=== PATIENT | male | born 1950 | race Hispanic/Latino ===

== ENCOUNTER 2018-09-03 11:25 | Inpatient (IN) | payer MEDICARE, OTHER ==
[~2018-09-03] VITALS: Ht 175.3 cm; Wt 99.8 kg
[~2018-09-03 11:25] MED LIST: LISINOPRIL-HCT1 EAC3 PO; Z.0.AMBIEN10 MG PO; Z.0.CELEBREX200 MG PO; Z.0.GABAPENTIN300 MG PO; Z.0.HEMOCYTE PLUS1 E PO; Z.0.KEFLEX500 MG PO; [UNRECOGNIZED DRUG - OTHER] PO
--- OUTSIDE RECORDS SUMMARY | 2018-09-03 11:31 | XMS REPORT ---
Author Author Quoc Sebastian Organization e[employer] Address Unknown Phone Unavailable Care Team Providers Care System Operation Superintendent Name Role Phone Quoc Sebastian CP Unavailable Allergies No Known Allergies Problems Problem Type Condition Code Onset Dates Condition Status Problem Left shoulder pain M25.512 Active Problem Rotator cuff tear M75.100 Active Problem Osteopenia of lumbar spine M85.88 Active Problem Right leg pain M79.604 Active Problem Acute pain of left knee M25.562 Active Problem Long-term use of high-risk medication Z79.899 Active Problem Rheumatoid arthritis M06.9 Active Problem Acute pain of right shoulder M25.511 Active Problem 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
--- OUTSIDE RECORDS SUMMARY | 2018-09-03 11:31 | XMS REPORT ---
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
--- OUTSIDE RECORDS SUMMARY | 2018-09-03 11:31 | XMS REPORT ---
Author Author Lanette Goodwin [facility] eClinicalWorks Address Unknown Phone Unavailable Care Team Providers Care Edi Programmer Name Role Phone Lanette Goodwin Unavailable Allergies, Adverse Reactions, Alerts Substance Reaction Event Type N.K.D.A. 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 Problem Long-term use of high-risk medication Z79.899 Active Medications Medication Code System Code Instructions Start Date End Date Status Dosage Folic Acid ND 12056115941 1 MG Orally Once a day Active 2 tablets Gabapentin ND 50152592973 300 MG Orally once a day Active 1 capsule Cyclobenzaprine HCl ND 53876782588 10 MG Orally once a day fro spasms August 06, 2017 Active 1 tablet as needed Humira ND 94803453547 40 MG/0.8ML Subcutaneous every 2 wks CANCEL prescription/pt enrolled in research Active 0.8 ml Methotrexate ND 42634535641 2.5 MG Orally once a week Active 4 tablets Lisinopril ND 48129182332 2.5 MG Orally Once a day Active 1 tablet PredniSONE ND 35552648638 5 MG Orally twice a day Active 1 tablet Vital Signs Date/Time: October 16, 2017 BMI 33.58 Index Weight 214.4 lbs Height 67 in Temperature 97.9 F Cardiac Monitoring Heart Rate 74 /min Blood Pressure Diastolic 68 mm Hg Blood Pressure Systolic 128 mm Hg Results No Known Results Summary Purpose eClinicalWorks Submission
--- OUTSIDE RECORDS SUMMARY | 2018-09-03 11:31 | XMS REPORT ---
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 14713468383 2.5 MG Orally once a week November 26, 2017 Active 4 tablets Results No Known Results Summary Purpose eClinicalWorks Submission
--- OUTSIDE RECORDS SUMMARY | 2018-09-03 11:31 | XMS REPORT ---
Author Author Quoc Sebastian [facility] eClinicalWorks Address Unknown Phone Unavailable Care Team Providers Care Glass Block Bender Name Role Phone Quoc Sebastian CP Unavailable Allergies No Known Allergies Problems Problem Type Condition Code Onset Dates Condition Status Assessment Left shoulder pain M25.512 Active Problem Left shoulder pain M25.512 Active Problem Rotator cuff tear M75.100 Active Problem Osteopenia of lumbar spine M85.88 Active Problem Right leg pain M79.604 Active Problem Acute pain of left knee M25.562 Active Problem Long-term use of high-risk medication Z79.899 Active Problem Rheumatoid arthritis M06.9 Active Problem Acute pain of right shoulder M25.511 Active Problem 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 Assessment Osteopenia of lumbar spine M85.88 Active Assessment Acute pain of left knee M25.562 Active Assessment 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 Assessment Long-term use of high-risk medication Z79.899 Active Assessment Right leg pain M79.604 Active Assessment Rheumatoid arthritis M06.9 Active Assessment Acute pain of right shoulder M25.511 Active Assessment Rotator cuff tear M75.100 Active Medications No Known Medications Results No Known Results Summary Purpose eClinicalWorks Submission
--- OUTSIDE RECORDS SUMMARY | 2018-09-03 11:31 | XMS REPORT ---
Author Author Quoc Sebastian [facility] eClinicalWorks Address Unknown Phone Unavailable Care Team Providers Care Fabric Finisher Name Role Phone Quoc Sebastian CP Unavailable Allergies, Adverse Reactions, Alerts Substance Reaction Event Type N.K.D.A. 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 Problem Right leg pain M79.604 Active Problem Left shoulder pain M25.512 Active Problem Rotator cuff tear M75.100 Active Problem Long-term use of high-risk medication Z79.899 Active Problem Rheumatoid arthritis M06.9 Active Medications Medication Code System Code Instructions Start Date End Date Status Dosage Humira [facility] 71869634648 40 MG/0.8ML Subcutaneous every 2 wks CANCEL prescription/pt enrolled in research Active 0.8 ml Folic Acid ND 75386673559 1 MG Orally Once a day Active 2 tablets Cyclobenzaprine HCl ND 61837827367 10 MG Orally once a day fro spasms August 06, 2017 November 04, 2017 Active 1 tablet as needed Lisinopril ND 52317003299 2.5 MG Orally Once a day Active 1 tablet PredniSONE ND 42245372603 5 MG Orally PRN Active 1 tablet Methotrexate [facility] [address]-81 2.5 MG once a week Active 4 tablets Metformin HCl ND 06493060951 500 MG Orally once a day Active 1 tablet with meals Gabapentin ND 53062068658 300 MG Orally once a day Active 1 capsule Vital Signs Date/Time: August 06, 2017 BMI 34.45 Index Weight 220 lbs Height 67 in Temperature 98.2 F Cardiac Monitoring Heart Rate 78 /min Blood Pressure Diastolic 64 mm Hg Blood Pressure Systolic 112 mm Hg Results No Known Results Summary Purpose eClinicalWorks Submission
--- OUTSIDE RECORDS SUMMARY | 2018-09-03 11:31 | XMS REPORT ---
Author Author Quoc Sebastian [facility] eClinicalWorks Address Unknown Phone Unavailable Care Team Providers Care Vamp Strap Ironer Name Role Phone Quoc Sebastian Unavailable Allergies, Adverse Reactions, Alerts Substance Reaction Event Type N.K.D.A. 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 Problem Long-term use of high-risk medication Z79.899 Active Problem Right leg pain M79.604 Active Problem Acute pain of right shoulder M25.511 Active Assessment Pain in left knee M25.562 Active Assessment 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 Assessment Rheumatoid arthritis M06.9 Active Medications Medication Code System Code Instructions Start Date End Date Status Dosage Gabapentin ND 90965874742 300 MG Orally once a day Active 1 capsule Lisinopril ND 54926046131 2.5 MG Orally Once a day Active 1 tablet Cyclobenzaprine HCl ND 79990878866 10 MG Orally once a day fro spasms August 06, 2017 Active 1 tablet as needed Humira ND 77965868037 40 MG/0.8ML Subcutaneous every 2 wks CANCEL prescription/pt enrolled in research Active 0.8 ml Folic Acid ND 60601365615 1 MG Orally Once a day Active 2 tablets PredniSONE ND 39696360192 5 MG Orally twice a day December 07, 2018 Active 1 tablet Methotrexate ND 43591955633 2.5 MG Orally once a week Active 4 tablets Vital Signs Date/Time: Jun 10, 2018 BMI 35 Index Weight 223.6 lbs Height 67 in Temperature 97.9 F Cardiac Monitoring Heart Rate 76 /min Blood Pressure Diastolic 68 mm Hg Blood Pressure Systolic 110 mm Hg Results No Known Results Summary Purpose eClinicalWorks Submission
--- OUTSIDE RECORDS SUMMARY | 2018-09-03 11:31 | XMS REPORT ---
Author Author Quoc Sebastian Organization [employer] Address Unknown Phone Unavailable Care Team Providers Care Boiler House Supervisor Name Role Phone Quoc Sebastian CP Unavailable [...]
--- OUTSIDE RECORDS SUMMARY | 2018-09-03 11:31 | XMS REPORT ---
Author Author Quoc Sebastian [facility] eClinicalWorks Address Unknown Phone Unavailable Care Team Providers Care Pecan Huller Name Role Phone Quoc Sebastian CP Unavailable Allergies, Adverse Reactions, Alerts Substance Reaction Event Type N.K.D.A. Info Not Available Non Drug Allergy Problems Problem Type Condition Code Onset Dates Condition Status Assessment Acute pain of left knee M25.562 Active Problem Rotator cuff tear M75.100 Active Assessment Rheumatoid arthritis M06.9 Active Assessment Long-term use of high-risk medication Z79.899 Active Assessment Primary osteoarthritis involving multiple joints [...] Instructions Start Date End Date Status Dosage PredniSONE [facility] 82547293049 5 MG Orally twice a day Active 1 tablet Medrol Dose Sabino ND 48117453715 4mg Orally as directed October 23, 2017 November 04, 2017 Active as directed Gabapentin [facility] 35560610943 300 MG Orally once a day Active 1 capsule Methotrexate ND 28136537347 2.5 MG Orally once a week Active 4 tablets Folic Acid ND 49768658131 1 MG Orally Once a day Active 2 tablets Humira [facility] 68168802269 40 MG/0.8ML Subcutaneous every 2 wks CANCEL prescription/pt enrolled in research Active 0.8 ml Cyclobenzaprine HCl ND 61729095310 10 MG Orally once a day fro spasms August 06, 2017 Active 1 tablet as needed Lisinopril ND 66000954782 2.5 MG Orally Once a day Active 1 tablet Vital Signs Date/Time: October 23, 2017 BMI 33.40 Index Weight 213.3 lbs Height 67 in Temperature 97.5 F Cardiac Monitoring Heart Rate 74 /min Blood Pressure Diastolic 68 mm Hg Blood Pressure Systolic 100 mm Hg Results No Known Results Summary Purpose eClinicalWorks Submission
--- OUTSIDE RECORDS SUMMARY | 2018-09-03 11:31 | XMS REPORT ---
Author Author Quoc Sebastian Organization [employer] Address Unknown Phone Unavailable Care Team Providers Care Chemistry Research Assistant Name Role Phone Quoc Sebastian CP Unavailable Allergies, Adverse Reactions, Alerts Substance Reaction Event Type N.K.D.A. 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 Problem Right leg pain M79.604 Active Problem Left shoulder pain M25.512 Active Problem Rotator cuff tear M75.100 Active Problem Long-term use of high-risk medication Z79.899 Active Problem Rheumatoid arthritis M06.9 Active Medications Medication Code System Code Instructions Start Date End Date Status Dosage Humira [facility] 32983180892 40 MG/0.8ML Subcutaneous every 2 wks CANCEL prescription/pt enrolled in research Active 0.8 ml PredniSONE ND 64493776959 5 MG Orally PRN Active 1 tablet Gabapentin ND 06063364236 300 MG Orally once a day Active 1 capsule Metformin HCl ND 60556901964 500 MG Orally Twice a day Active 1 tablet with meals Folic Acid ND 13809608342 1 MG Orally Once a day Active 2 tablets Lisinopril ND 66798258620 2.5 MG Orally Once a day Active 1 tablet Methotrexate [facility] [address]-14 2.5 once a week Active 4 tablets Cyclobenzaprine HCl [facility] 15896713187 10 MG Orally bid Apr 09, 2017 Jul 08, 2017 Active 1 tablet as needed Vital Signs Date/Time: Apr 09, 2017 BMI 34.41 Index Weight 219.7 lbs Height 67 in Temperature 98.4 F Cardiac Monitoring Heart Rate 88 /min Blood Pressure Diastolic 60 mm Hg Blood Pressure Systolic 100 mm Hg Results No Known Results Summary Purpose eClinicalWorks Submission
--- OUTSIDE RECORDS SUMMARY | 2018-09-03 11:31 | XMS REPORT ---
Author Author Quoc Sebastian Organization [employer] Address Unknown Phone Unavailable Care Team Providers Care Technical Business Systems Analyst Name Role Phone Quoc Sebastian CP Unavailable [...] Acute pain of right shoulder M25.511 Active Medications No Known Medications Results No Known Results Summary Purpose eClinicalWorks Submission
--- OUTSIDE RECORDS SUMMARY | 2018-09-03 11:31 | XMS REPORT ---
Author Author Quoc Sebastian Organization [employer] Address Unknown Phone Unavailable Care Team Providers Care Drying Unit Felting Machine Operator Name Role Phone Quoc Sebastian CP [...]
--- OUTSIDE RECORDS SUMMARY | 2018-09-03 11:31 | XMS REPORT ---
Author Quoc Rankin [facility] eClinicalWorks Address Unknown Phone Unavailable Care Team Providers Care Security Incident Response Engineer Name Role Phone Quoc Sebastian CP Unavailable Allergies, Adverse Reactions, Alerts Substance Reaction Event Type N.K.D.A. 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 Medications Medication Code System Code Instructions Start Date End Date Status Dosage PredniSONE ND 76458975753 5 MG Orally twice a day Active 1 tablet Methotrexate ND 29437329804 2.5 MG Orally once a week Active 4 tablets Humira ND 36747716777 40 MG/0.8ML Subcutaneous every 2 wks CANCEL prescription/pt enrolled in research Active 0.8 ml Lisinopril ND 51901567406 2.5 MG Orally Once a day Active 1 tablet Gabapentin ND 01584753775 300 MG Orally once a day Active 1 capsule Cyclobenzaprine HCl ND 58670674767 10 MG Orally once a day fro spasms August 06, 2017 Active 1 tablet as needed Folic Acid ND 20377467692 1 MG Orally Once a day Active 2 tablets Vital Signs Date/Time: November 30, 2017 BMI 34.70 Index Weight 215 lbs Height 66 in Temperature 97.5 F Cardiac Monitoring Heart Rate 68 /min Blood Pressure Diastolic 68 mm Hg Blood Pressure Systolic 110 mm Hg Results No Known Results Summary Purpose eClinicalWorks Submission
--- OUTSIDE RECORDS SUMMARY | 2018-09-03 11:31 | XMS REPORT ---
Author Author Quoc Sebastian Organization eClinicalWorks Address Unknown Phone Unavailable Care Team Providers Care Laborer Wharf Name Role Phone Quoc Sebastian CP Unavailable [...] Start Date End Date Status Dosage Methotrexate [facility] 38230878907 2.5 MG Orally once a week Active 4 tablets Results No Known Results Summary Purpose eClinicalWorks Submission
--- OUTSIDE RECORDS SUMMARY | 2018-09-03 11:31 | XMS REPORT ---
Author Author Quoc Sebastian Organization eClinicalWorks Address Unknown Phone Unavailable Care Team Providers Care Adjunct Professor Of English Name Role Phone Quoc Sebastian CP Unavailable [...] osteoarthritis involving multiple joints M15.0 Active Medications No Known Medications Results No Known Results Summary Purpose eClinicalWorks Submission
--- NOTE | 2018-09-03 12:20 | Diagnostic Imaging Report ---
EXAM: CXR 2 VIEW - [facility]OPD DATE: 09/03/2018 12:00 AM INDICATION:Chest pain COMPARISON: None FINDINGS: Lines and tubes: None The heart is upper normal size. No focal pulmonary opacity, pleural effusion or pneumothorax. There is central pulmonary vascular prominence. Minimal scarring or atelectasis at the left lung base with trace left pleural effusion. Upper abdomen unremarkable. No acute bony abnormality. IMPRESSION: Borderline heart size with central pulmonary vascular prominence and trace left pleural effusion. Signed by: Dr. Faustino Connor M.D. on 09/03/2018 12:16 PM
[2018-09-03] MEDS ORDERED: ASPIR 8181 MG PO (13:34)
[2018-09-03] MEDS ORDERED: HUMIRA40 MG/0.1 INJ (13:41)
[2018-09-03] MEDS ORDERED: FOLIC ACID1 MG PO (13:41)
[2018-09-03] MEDS ORDERED: JANUMET XR 1001 EACH (13:41)
[2018-09-03] MEDS ORDERED: HUMIRA40 MG/0.1 (13:41)
[2018-09-03] MEDS ORDERED: FINASTERIDE5 MG PO (13:41)
[2018-09-03] MEDS ORDERED: PREDNISONE10 MG PO (13:44)
[2018-09-03] MEDS ORDERED: METFORMIN HCL500 MG PO (13:44)
[2018-09-03] MEDS ORDERED: LISINOPRIL10 MG PO (13:44)
[2018-09-03] MEDS ORDERED: METHOTREXATE2.5 MG PO (13:44)
[2018-09-03] MEDS ORDERED: FLOMAX0.4 MG PO (13:44)
--- NOTE | 2018-09-03 14:07 | NUR ---
[facility] CALLED FOR STAT TRANSFER <15 ETA
--- NOTE | 2018-09-03 14:07 | NUR ---
PT RESTING, VITAL SIGNS STABLE, PT AWARE OF POC TO BE TRANSFERED TO MAIN
[2018-09-03] MEDS ORDERED: ENOXAPARIN SODIUM INJ 100 MG/ML SYR SC STA (14:09)
[2018-09-03] MEDS ORDERED: ENOXAPARIN SODIUM INJ 100 MG/ML SYR SC SCH (14:15)
--- OUTSIDE RECORDS SUMMARY | 2018-09-03 14:29 | XMS REPORT | Continuity of Care Document ---
Author Author Elizabeth no [facility] Address Unknown Phone Unavailable Problems Problem Status Onset Date Classification Date Reported Comments Source Acute pain of right shoulder Active Problem 2018 Brody Sebastian Primary osteoarthritis involving multiple joints Active Problem 2018 Brody Sebastian Right leg pain Active Problem 2018 Brody Sebastian Left shoulder pain Active Problem 2018 Brody Sebastian Rotator cuff tear Active Problem 2018 Brody Sebastian Long-term use of high-risk medication Active Problem 2018 Brody Sebastian Rheumatoid arthritis Active Problem 2018 Brody Sebastian Acute pain of left knee Active Problem 2018 Brody Sebastian Left knee pain Active Diagnosis 10/30/2017 Brody Sebastian Osteopenia of lumbar spine Active Problem 2018 Brody Sebastian Pain in left knee Active Problem 2018 Brody Sebastian Medications Medication Details Route Status Patient Instructions Ordering Provider Order Date Source PredniSONE 1 tablet Orally Active 5 MG Orally twice a day [place] 12/07/2018 Brody Sebastian Methotrexate 4 tablets Orally Active 2.5mg Orally Once a week [place] 02/11/2018 Brody Sebastian Methotrexate 4 tablets Orally Active 2.5 MG Orally once a week [place] 11/26/2017 Brody Sebastian Medrol Dose Sabino as directed Orally Active 4mg Orally as directed [place] 10/23/2017 Brody Sebastian Cyclobenzaprine HCl 1 tablet as needed Orally Active 10 MG Orally once a day fro spasms [place] 08/06/2017 Brody Sebastian Cyclobenzaprine HCl 1 tablet as needed Orally Active 10 MG Orally bid [place] 04/09/2017 Brody Sebastian Methotrexate 4 tablets Orally Active 2.5 MG Orally once a week [place] Brody Sebastian PredniSONE 1 tablet Orally Active 5 MG Orally twice a day [place] Brody Sebastian Gabapentin 1 capsule Orally Active 300 MG Orally once a day [place] Brody Sebastian Folic Acid 2 tablets Orally Active 1 MG Orally Once a day [place] Brody Sebastian Humira 0.8 ml Subcutaneous Active 40 MG/0.8ML Subcutaneous every 2 wks CANCEL prescription/pt enrolled in research Jaz Sebastian Lisinopril 1 tablet Orally Active 2.5 MG Orally Once a day Jaz Sebastian Methotrexate 4 tablets NA Active 2.5 MG once a week Jaz Sebastian Metformin HCl 1 tablet with meals Orally Active 500 MG Orally once a day Jaz Sebastian Allergies, Adverse Reactions, Alerts Substance Category Reaction Severity Reaction type Status Date Reported Comments Source N.K.D.A. Adverse Reaction Info Not Available Adverse Reaction Active 06/10/2018 Brody Sebastian Immunizations Immunization Date Given Site Status Last Updated Comments Source Results Order Name Results Value Reference Range Date Interpretation Comments Source Vital Signs Vital Sign Value Date Comments Source Weight 223.6 06/10/2018 Brody Gómezer Height 67 06/10/2018 Brody Sebastian Temperature Oral (F) 97.9 F 06/10/2018 Brody Sebastian Heart Rate 76 06/10/2018 Brody Sebastian Diastolic (mm Hg) 68 06/10/2018 Brody Sebastian Systolic (mm Hg) 110 06/10/2018 Brody Sebastian Weight 215 11/30/2017 Brody Sebastian Height 66 11/30/2017 Brody Sebastian Temperature Oral (F) 97.5 F 11/30/2017 Brody Sebastian Heart Rate 68 11/30/2017 Brody Sebastian Diastolic (mm Hg) 68 11/30/2017 Brody Sebastian Systolic (mm Hg) 110 11/30/2017 Brody Sebastian Weight 213.3 10/23/2017 Brody Sebastian Height 67 10/23/2017 Brody Sebastian Temperature Oral (F) 97.5 F 10/23/2017 Brody Sebastian Heart Rate 74 10/23/2017 Brody Sebastian Diastolic (mm Hg) 68 10/23/2017 Brody Sebastian Systolic (mm Hg) 100 10/23/2017 Brody Sebastian Weight 214.4 10/16/2017 Brody Sebastian Height 67 10/16/2017 Brody Sebastian Temperature Oral (F) 97.9 F 10/16/2017 Brody Sebastian Heart Rate 74 10/16/2017 Brody Sebastian Diastolic (mm Hg) 68 10/16/2017 Brody Sebastian Systolic (mm Hg) 128 10/16/2017 Brody Sebastian Weight 220 08/06/2017 Brody Sebastian Height 67 08/06/2017 Brody Sebastian Temperature Oral (F) 98.2 F 08/06/2017 Brody Sebastian Heart Rate 78 08/06/2017 Brody Sebastian Diastolic (mm Hg) 64 08/06/2017 Brody Sebastian Systolic (mm Hg) 112 08/06/2017 Brody [place] Weight 219.7 04/09/2017 Brody Sebastian Height 67 04/09/2017 Brody Sebastian Temperature Oral (F) 98.4 F 04/09/2017 Brody Sebastian Heart Rate 88 04/09/2017 Brody Sebastian Diastolic (mm Hg) 60 04/09/2017 Brody Sebastian Systolic (mm Hg) 100 04/09/2017 Brody Sebastian Encounters Location Location Details Encounter Type Encounter Number Reason For Visit Attending Provider ADM Date DC Date Status Source Procedures Procedure Code Date Perfomer Comments Source
--- OUTSIDE RECORDS SUMMARY | 2018-09-03 14:29 | XMS REPORT ---
[facility] Address Unknown Phone Unavailable Care Team Providers Care Senior Validation Engineer Name Role Phone Festus MARTIN Unavailable Unavailable Problems This patient has no known problems. Allergies, Adverse Reactions, Alerts This patient has no known allergies or adverse reactions. Medications This patient has no known medications. Results Test Description Test Time Test Comments Text Results Atomic Results Result Comments [facility] 2018-09-03 12:13:00 [place] [id number] Patient Name: SAMANTA ANTONIO MR #: [id number] : 1950 Age/Sex: 68/M Req #: [id number] Adm Physician: Ordered by: RAMÓN MARTIN MD Report #: [id number] Location: [facility] Room/Bed: Procedure: [id number] HOPD/CXR 2 VIEW - [facility] Exam Date: 09/03/18 Exam Time: 1200 REPORT STATUS: Signed EXAM: CXR 2 VIEW - [facility] DATE: 09/03/2018 12:00 AM INDICATION:Chest pain COMPARISON: None FINDINGS: Lines and tubes: None The heart is upper normal size. No focal pulmonary opacity, pleural effusion or pneumothorax. There is central pulmonary vascular prominence. Minimal scarring or atelectasis at the left lung base with trace left pleural effusion. Upper abdomen unremarkable. No acute bony abnormalit y. IMPRESSION: Borderline heart size with central pulmonary vascular prominence and trace left pleural effusion. Signed by: Dr. Donald Silvestre M.D. on 09/03/2018 12:16 PM Dictated By: DONALD SILVESTRE MD [id number] Transcribed By: KAY on 09/03/186 COPY TO: RAMÓN MARTIN MD
[2018-09-03] MEDS ORDERED: TICAGRELOR 90 MG TABLET PO ONE (14:45)
--- NOTE | 2018-09-03 15:30 | NUR ---
Received patient from [facility], via stretcher with c/o chest pains that started on Sunday, states that pain was 5/10 earlier today and at 1.5/10 at this time. VSS and on continuous telemetry, ambulatory.Dr. Alberto the enologist aware about patient and orders patient can have dinner and will be NPO from midnight for possible LHC tomorrow. Patient in no apparent distress at this time, call light within reach and will monitor
[2018-09-03] MEDS ORDERED: TICAGRELOR 90 MG TABLET PO NR (16:15)
[2018-09-03 16:16] VITALS: BP 116/66
[2018-09-03 16:21] VITALS: BP 116/66
[2018-09-03 17:27] LABS: CREATINE KINASE MB 31.5 ng/mL (0-5.0)
[2018-09-03] MEDS ORDERED: DEXTROSE 50% SYRINGE 50 ML IV PRN (17:30)
[2018-09-03] MEDS ORDERED: NITROGLYCERIN 0.4 MG SUBL SL PRN (17:45)
[2018-09-03] MEDS ORDERED: MORPHINE SULFATE INJ 4 MG/ML INJ 1ML IV PRN (18:00)
--- NOTE | 2018-09-03 18:05 | NUR ---
Rounds by manager hi, reported elevated troponin and orders in place for Statins, antiplatelets and morphine. He will need to called if patient becomes symptomatic with chest pains, patient at this time in bed and no distress.
--- NOTE | 2018-09-03 18:28 | NUR ---
Patient consented to [facility] and signed consent at this time
--- NOTE | 2018-09-03 19:00 | NUR ---
Report and rounds completed. Family at bedside. No issues or concerns at this time. Denies pain at this time.Will continue to monitor.
--- NOTE | 2018-09-03 19:11 | NUR ---
Spoke with Dr. Caceres and orders in place for labs and to resume some home meds.
--- NOTE | 2018-09-03 19:56 | NUR ---
Spoke with Dr Sanchez via phone. patient has scheduled dose of lovenox at 0215 and heart cath scheduled for 0900. First trop 13.5, second trop 15.7 and third is due at 0030. Hold 2am lovenox dose. Clarified if want aspirin and brilinta to be given in morning before heart cath. Give aspirin and brilinta as ordered in am before heart cath.
[2018-09-03 20:00] VITALS: BP 120/68
[2018-09-03] MEDS: ATORVASTATIN 40 MG TAB PO SCH (21:42)
[2018-09-03] MEDS: GABAPENTIN 300 MG CAP PO SCH (21:42)
[2018-09-03] MEDS: INSULIN REGULAR, HUMAN 100 UNIT/1 ML 3ML VIAL SQ SCH (21:43)
[2018-09-04] VITALS (22 sets, daily range): BP systolic 92–127; BP diastolic 61–78
[2018-09-04 00:48] LABS: CREATINE KINASE MB 14.5 ng/mL (0-5.0)
--- NOTE | 2018-09-04 00:52 | NUR ---
Lab alert: troponin 12.75, lab trending down. MD aware that troponin levels elevated. Monitoring patient, denies any pain and asymptomatic. VS stable. To have have heart cath in am.
[2018-09-04] MEDS: ENOXAPARIN SODIUM INJ 100 MG/ML SYR SC SCH ×2 (01:34→14:15)
--- NOTE | 2018-09-04 01:39 | Consultation ---
DATE OF CONSULTATION: 09/03/2018 Cardiology Consult Note. REASON FOR CONSULT: Jlo-FP-iwxpiijnq myocardial infarction. CHIEF COMPLAINT: Chest pain. HISTORY OF PRESENT ILLNESS: The patient is a 68-year-old man with history of hypertension, hyperlipidemia, who presents with chest pain, diaphoresis, and shortness of breath that is an episodic starting on Sunday. He says he had about a 3 hour episode of chest pain, diaphoresis, and shortness of breath. He was working in his garage at the time, he laid down for a nap and then the symptoms resolved, so he did not seek any medical care. Symptoms returned yesterday when he was trying to do some light work around the house, however, at this time, they did not talia. Given continued symptoms, he decided to seek medical care today, was found to have elevated troponin in the Urgent Care at 15.7, as well as some inferior Q-waves. Denies any ongoing symptoms. No heart failure symptoms. Hemodynamically stable. No syncope. PAST MEDICAL HISTORY: Hypertension and hyperlipidemia. FAMILY HISTORY: Noncontributory. SOCIAL HISTORY: The patient does not smoke, drink, or abuse drugs. REVIEW OF SYSTEMS: As per HPI, otherwise negative. INPATIENT MEDICATIONS: Reviewed. OBJECTIVE: VITAL SIGNS: Temperature afebrile, pulse 67, respiratory rate 18, blood pressure 116/66, and saturating 99% on room air. GENERAL: Obese man, in no acute distress. CARDIOVASCULAR: Regular rate and rhythm. No murmurs, rubs, or gallops. LUNGS: Clear to auscultation bilaterally. ABDOMEN: Soft, nontender, nondistended. Obese. NEURO AND PSYCH: Alert and oriented to person, place, and time. Normal affect. LABORATORY DATA: Reviewed notable for troponin of 15.7. IMAGING DATA: Reviewed. Chest x-ray shows borderline cardiomegaly with prominent central pulmonary vasculature. TELEMETRY DATA: Reviewed and shows normal sinus rhythm. ASSESSMENT: Zmu-SU-bbdepzzzh myocardial infarction. PLAN: Continue full-dose Lovenox, aspirin, and Ticagrelor. Plan for coronary angiography, possible intervention tomorrow morning. The patient is currently asymptomatic. Thank you for this consult and we will continue to follow. Ramo Alberto MD KVP/MODL /[id number]
[2018-09-04 05:32] LABS: BASOPHILS # (AUTO) 0.1 (0.0-0.1); BASOPHILS % 0.8 % (0.0-1.0); EOSINOPHILS # (AUTO) 0.1 (0.0-0.4); EOSINOPHILS % 1.1 % (0.0-6.0); HEMATOCRIT 43.8 % (38.2-49.6); HEMOGLOBIN 14.4 g/dL (14.0-18.0); LYMPHOCYTES % 23.8 % (18.0-39.1); MEAN CORPUSCULAR HGB CONC 32.9 g/dL (31-35); MEAN CORPUSCULAR VOLUME 94.2 fL (81-99); MONOCYTES # (AUTO) 0.8 (0.2-0.8); MONOCYTES % 9.7 % (4.4-11.3); NEUTROPHILS # (AUTO) 5.4 (2.1-6.9); NEUTROPHILS % 62.7 % (38.7-80.0); PLATELET COUNT 193 x10e3/uL (140-360); RED BLOOD COUNT 4.65 x10e6/uL (4.3-5.7); RED CELL DISTRIBUTION WIDTH 14.1 % (11.7-14.4)
[2018-09-04 06:02] LABS: CREATINE KINASE MB 9.7 ng/mL (0-5.0)
--- NOTE | 2018-09-04 06:03 | NUR ---
Lab alert: troponin 10.54, lab trending down. MD aware that troponin levels elevated. Monitoring patient, Continues denies any pain and remains asymptomatic. VS stable. To have have heart cath in am.
[2018-09-04 06:54] LABS: ANION GAP 13.1 mmol/L (8-16); BLOOD UREA NITROGEN 8 mg/dL (7-26); BUN/CREATININE RATIO 11 (6-25); CALCIUM 9.4 mg/dL (8.4-10.2); CARBON DIOXIDE 23 mmol/L (22-29); CHLORIDE 104 mmol/L (98-107); CHOL/HDL RATIO 4.7 (3.9-4.7); CHOLESTEROL 177 MD/DL (0-199); CREATININE, SERUM 0.74 mg/dL (0.72-1.25); EST GLOMERULAR FILTRATION RATE > 60 ML/MIN (60-); GLUCOSE 128 mg/dL (74-118); HDL CHOLESTEROL 38 MG/DL (40-60); LDL CHOLESTEROL 95 MG/DL (60-130); POTASSIUM 4.1 mmol/L (3.5-5.1); SODIUM 136 mmol/L (136-145); TRIGLYCERIDES 222 MG/DL (0-149)
[2018-09-04] MEDS: INSULIN REGULAR, HUMAN 100 UNIT/1 ML 3ML VIAL SQ SCH ×4 (07:30→21:00)
[2018-09-04] MEDS: TICAGRELOR 90 MG TABLET PO SCH ×2 (08:25→17:00)
[2018-09-04] MEDS: ASPIRIN 81 MG CHEW TAB PO SCH (08:25)
[2018-09-04] MEDS: TAMSULOSIN HCL 0.4 MG CAP PO SCH (08:35)
[2018-09-04] MEDS: FINASTERIDE 5 MG TAB PO SCH (08:35)
[2018-09-04] MEDS ORDERED: HEPARIN SOD/SOD CHLORIDE 2,000 ML ONE (08:55)
[2018-09-04] MEDS ORDERED: FENTANYL CITRATE/PF 100MCG/2 ML INJ ONE (08:55)
[2018-09-04] MEDS ORDERED: LIDOCAINE HCL 2% LOCAL 20 ML VIAL ONE (08:55)
[2018-09-04] MEDS ORDERED: MIDAZOLAM HCL 2 MG/2 ML VIAL ONE (08:55)
[2018-09-04] MEDS ORDERED: VERAPAMIL HCL 2.5 MG/ML 2 ML VIAL ONE (08:55)
[2018-09-04] MEDS ORDERED: IOPAMIDOL 370 MG/ML 200 ML INFUS..BTL INJ ONE (08:56)
[2018-09-04] MEDS: SODIUM CHLORIDE 0.9% 1000ML 1,000 ML IV SCH ×3 (09:00→18:26)
[2018-09-04] MEDS ORDERED: GABAPENTIN 300 MG CAP PO SCH (09:00)
[2018-09-04] MEDS ORDERED: TICAGRELOR 90 MG TABLET ONE (10:11)
[2018-09-04] MEDS ORDERED: ASPIRIN 325 MG TAB ONE (10:11)
--- NOTE | 2018-09-04 10:35 | NUR ---
1035 Received pt to lab specialist recovery rm #[id number] [id number] RCA stent fix terri rt tr band approach to finish 2nd bolus Ns then kvo Rt arm ivsite dry and intact no s/s infiltration Denies CP or SOB, No gross signs pain , pallor, pressure . No oozing or hematoma for titration at 1145. Back to baseline orientation. Resp shallow and regular. Denies necessity to defecate or urinate. Abdomen soft and non tender. Bilateral femoral pulses present. Served diet tray ate well. ds/rn
--- NOTE | 2018-09-04 12:15 | NUR ---
1215 TR band titratin initiate 12cc in balloon 1230 -2cc Positive 10cc ,No gross signs of pallor,bleeding, radial pulse adequate 1245 -2cc Positive 8cc ,No gross signs of pallor,bleeding,radial pulse adequate 1300-2cc Positive 6cc, No gross signs of pallor,bleeding, radial pulse adequate void qs. Denies co CP or SOB family at bedside has copies TR band titration. ds/rn
--- NOTE | 2018-09-04 12:15 | History and Physical ---
CHIEF COMPLAINT: Chest pain. HISTORY OF PRESENT ILLNESS: This is a 68-year-old male, who came from an outside ER with a troponin of 14, was complaining of chest pain ongoing for the last several days at home. The patient describes chest pain as substernal that has been worsening upon any sort of activity. He denies any radiation. Denies any associated nausea, vomiting, or diaphoresis. Yesterday, his chest pain began to get worse and came into the ER and transferred here to the [facility] for further evaluation. Cardiology was consulted. The patient was started on cardioprotective medications, full-dose Lovenox, aspirin. REVIEW OF SYSTEMS: Pertinent positive: Chest pain. Pertinent negatives: Denies any palpitation, nausea, vomiting, diarrhea, dysuria, hematuria, frequency, urgency, lightheadedness, dizziness, abdominal pain, headaches, shortness of breath, cough, congestion, fever, or any other complaints. The rest of 14-point review of systems have been reviewed with the patient and are negative. ALLERGIES: NO KNOWN DRUG ALLERGIES. HOME MEDICATIONS: Aspirin 81 mg daily, folic acid 1 mg daily, lisinopril 10 mg daily, metformin 500 mg p.o. b.i.d., methotrexate 10 mg weekly, prednisone 10 mg daily, Humira, sitagliptin with metformin combo, finasteride 5 mg daily, gabapentin 300 mg daily, and tamsulosin 0.4 mg daily. PAST MEDICAL HISTORY: BPH, peripheral neuropathy, diabetes, rheumatoid arthritis, hypertension. PAST SURGICAL HISTORY: Reports none. FAMILY HISTORY: Hypertension and diabetes. SOCIAL HISTORY: No drugs. No alcohol. Does not smoke. Good social support. He is . PHYSICAL EXAMINATION: VITAL SIGNS: Temperature is 98, pulse 65, respiratory rate is 18, blood pressure 110/72, pulse ox 95% on room air. GENERAL: Not in acute distress. Alert and oriented x3. Cooperative on examination. HEENT: Head is normocephalic and atraumatic. Eyes; pupils are equal, round, and reactive to light bilaterally. Extraocular movements are intact bilaterally. Throat, no evidence of erythema or exudates in the posterior pharynx. Has poor dentition. NECK: Supple. Good range of motion. PULMONARY: Clear to auscultation bilaterally. No wheezing, no rales, no rhonchi, no crackles appreciated. CARDIOVASCULAR: Positive S1, S2. No murmurs, rubs, or gallops appreciated. ABDOMEN: Soft, nondistended, and nontender to palpation. Bowel sounds present. MUSCULOSKELETAL: Strength is 5/5 throughout. No evidence of any muscle deficits on examination. No weakness appreciated. NEUROLOGICAL: Cranial nerves 2 through 12 grossly intact. No evidence of any neurological deficits on exam. SKIN: Intact. Warm to touch. Good cap refill. PSYCHIATRIC: Normal affect and mood. EXTREMITIES: No edema. Good range of motion throughout. LAB FINDINGS: Show white count 8.5, hemoglobin 14, hematocrit is 43, platelets 193. Chemistry; sodium 132, potassium 4.1, chloride 104, bicarb 23, anion gap of 13, BUN is 8, creatinine is 0.74, glucose is 128. A1c is 6.3. His calcium is 9.4. His troponin on admission was 12.7, then 10.5. His triglycerides is 222, LDL is 95, and HDL is 38. MICROBIOLOGY: None. IMAGING STUDIES: Chest x-ray shows borderline heart size with pulmonary vascular prominence with trace left pleural effusion. IMPRESSION: 1. Non-ST elevation myocardial infarction with abnormal EKG with elevated troponin. 2. Type 2 diabetes. 3. Hypertension. 4. Hyperlipidemia. 5. Morbid obesity. PLAN: At this time, he is on schedule for left heart catheterization early this morning. He is on full-dose Lovenox, aspirin, Lipitor, he is on Brilinta as well and Cardiology was consulted. We are going to resume all his home medications except for metformin and JENNIFER inhibitor as the patient is going to get a left heart catheterization. We will add some IV fluids to avoid TIN, contrast-induced nephropathy. Get a.m. labs. Put him on insulin sliding scale, Accu-Cheks, A1c. Get lipid panel. Continue with Lipitor. Continue same antihypertensive medications. He is already on Lovenox for DVT prophylaxis. Discussed case with nursing staff. The patient is currently in [facility]. MD LINDA Monique/MODL /[id number]
--- NOTE | 2018-09-04 13:45 | NUR ---
1345 TR band completion Coban dressing in place with sterile 2x2 and arm splint. Radial pulse strong No gross signs pain pallor pressor pr dysrhythmia. Transferred back per bed with tele from [facility] Tolerated po intake.Denies c/o CP or SOB. Face to face report with Murial RN and tele room given report Pt stable ds/rn
--- NOTE | 2018-09-04 17:17 | Progress Note ---
DATE: 09/04/2018 Cardiology Progress Note SUBJECTIVE: No major events overnight. Had coronary angiogram and PCI to the RCA earlier today, done by me. OBJECTIVE: VITAL SIGNS: Temperature afebrile, pulse 53, respiratory rate 16, blood pressure 118/68, and saturating 99% on room air. GENERAL: Obese man, in no acute distress. CARDIOVASCULAR: Regular rate and rhythm. No murmurs, rubs, or gallops. LUNGS: Clear to auscultation bilaterally. ABDOMEN: Obese, soft, nontender, nondistended. NEURO AND PSYCH: Alert and oriented to person, place, and time. Normal affect. INPATIENT MEDICATIONS: Reviewed. LABORATORY DATA: Reviewed. IMAGING DATA: Reviewed. ASSESSMENT: Non-ST elevation myocardial infarction. PLAN: Status post PCI to the RCA earlier today. Continue to monitor post PCI. Continue aspirin and Brilinta. Discontinue Lovenox. We will optimize his medical therapy including high-intensity statin. No beta-yuli as heart rate is borderline low. Plan for discharge tomorrow. Follow up in the office two weeks post procedure. Thank you for this consult. We will continue to follow. MD DREW Melgar/MARQUEZ /[id number]
[2018-09-04] MEDS: ATORVASTATIN 40 MG TAB PO SCH (21:05)
[2018-09-04] MEDS: GABAPENTIN 300 MG CAP PO SCH (21:05)
--- NOTE | 2018-09-05 00:08 | Operative Report ---
DATE OF PROCEDURE: 09/04/2018 SURGEON: Ramo Alberto MD INDICATIONS FOR PROCEDURE: Non-ST elevation ND. PREPROCEDURE ASSESSMENT: The patient's medical history, social history, prior experience with anesthesia was reviewed prior to the procedure. The patient was deemed to be an appropriate candidate for moderate sedation. The risks, benefits, and alternatives of the treatment were explained to the patient and informed consent was obtained as documented in the medical record. MEDICATIONS: Please see nursing notes for medications administered during the procedure. PROCEDURES PERFORMED: 1. Coronary angiography, right radial. 2. Left heart catheterization. 3. PCI to the RCA with Synergy 3.0 x 24 mm drug-eluting stent. PROCEDURE DETAILS: The patient was brought to the cardiac catheterization laboratory in a fasting state. Right wrist was prepped and draped in a sterile fashion. Access to the right radial artery was obtained using modified Seldinger technique and a 6-Turkmen slender sheath was inserted in the right radial artery. Coronary angiography was performed using Dottie radial catheter. Left heart catheterization was performed using a JR4 5-Turkmen catheter. Angiography revealed the following anatomy. Left main, no significant CAD, mild plaquing of the LAD, large vessel goes to the apex. Several small diagonal branches. Mild diffuse plaquing of the LAD with about a 50% lesion in the mid LAD. No severe obstructive disease. Left circumflex with three large OM branches. OM2 has a 70% lesion in the midportion. Mild diffuse plaquing of the [place] circ with about a 50% lesion just prior to origination of the obtuse marginal tree. Large dominant RCA, mild diffuse plaquing with 90% ulcerated plaque in the mid RCA with LYSSA two flow distally into medium size RPDA and RPL system. There is about a 50% lesion with ostial RPDA as well as a 70% lesion of distal RPL system. Given these findings, we decided to proceed with a PCI of the RCA. ACT near 300 was achieved using IV ARASH heparin boluses with PCI of the RCA. A 6-Turkmen JR4 guide was used. This provided adequate support. Lesion was crossed using a BMW coronary wire. Direct stenting was performed using Synergy 3.0 x 24 mm drug-eluting stent deployed at 17 atmospheres. This provided excellent angiographic result without any dissections, spasm, or thrombus. FINDINGS: Coronary anatomy as described above. Successful PCI to the RCA with drug-eluting stent x1. Estimated blood loss 20 mL. COMPLICATIONS: None. GRAFTS AND IMPLANTS: One drug-eluting stent. SPECIMENS REMOVED: None. CONCLUSION AND RECOMMENDATIONS: 1. Successful PCI to the RCA with Synergy 3.0 x 24 mm drug-eluting stent. 2. Continue aspirin 81 and ticagrelor 90 mg b.i.d. for at least one year, followed by aspirin 81 mg daily for life. 3. Continue optimal medical therapy and risk factor control. 4. Follow up in clinic 2 weeks post procedure. MD DREW Melgar/ALVAROL /[id number]
--- NOTE | 2018-09-05 03:36 | NUR ---
Report received from AM BEULAH Rodas. Patient received resting comfortably on his bed. Denied pain and no SOB. Respiration even and unlabored. Patient instructed to call for help as needed, verbalized understand. Bed in lower position,locked. Call kerr within reach.
[2018-09-05 03:40] VITALS: BP 103/63
[2018-09-05] MEDS: SODIUM CHLORIDE 0.9% 1000ML 1,000 ML IV SCH (05:00)
[2018-09-05 05:15] LABS: BASOPHILS # (AUTO) 0.1 (0.0-0.1); BASOPHILS % 1.2 % (0.0-1.0); EOSINOPHILS # (AUTO) 0.2 (0.0-0.4); HEMATOCRIT 42.7 % (38.2-49.6); HEMOGLOBIN 14.1 g/dL (14.0-18.0); LYMPHOCYTES # (AUTO) 1.8 (1.0-3.2); LYMPHOCYTES % 23.2 % (18.0-39.1); MEAN CORPUSCULAR HEMOGLOBIN 31.1 pg (28-32); MEAN CORPUSCULAR VOLUME 94.1 fL (81-99); MONOCYTES # (AUTO) 0.7 (0.2-0.8); MONOCYTES % 9.5 % (4.4-11.3); NEUTROPHILS # (AUTO) 4.6 (2.1-6.9); NEUTROPHILS % 60.1 % (38.7-80.0); PLATELET COUNT 185 x10e3/uL (140-360); RED BLOOD COUNT 4.54 x10e6/uL (4.3-5.7)
[2018-09-05 05:36] LABS: ANION GAP 12.8 mmol/L (8-16); BLOOD UREA NITROGEN 11 mg/dL (7-26); BUN/CREATININE RATIO 16 (6-25); CALCIUM 9.2 mg/dL (8.4-10.2); CARBON DIOXIDE 21 mmol/L (22-29); CHLORIDE 107 mmol/L (98-107); EST GLOMERULAR FILTRATION RATE > 60 ML/MIN (60-); GLUCOSE 130 mg/dL (74-118); POTASSIUM 3.8 mmol/L (3.5-5.1); SODIUM 137 mmol/L (136-145)
[2018-09-05] MEDS: INSULIN REGULAR, HUMAN 100 UNIT/1 ML 3ML VIAL SQ SCH ×2 (07:30→11:30)
[2018-09-05 07:32] VITALS: BP 98/56
[2018-09-05 08:13] VITALS: BP 98/56
--- NOTE | 2018-09-05 08:14 | NUR ---
patient received awake and alert. see shift assess. sinus rhythm. no c/o pain. right wrist with immobilizer in place post cath yesterday. vitals stable
[2018-09-05] MEDS: TAMSULOSIN HCL 0.4 MG CAP PO SCH (08:52)
[2018-09-05] MEDS: TICAGRELOR 90 MG TABLET PO SCH (08:52)
[2018-09-05] MEDS: FINASTERIDE 5 MG TAB PO SCH (08:52)
[2018-09-05] MEDS: ASPIRIN 81 MG CHEW TAB PO SCH (08:52)
[2018-09-05 08:53] LABS: LYMPHOCYTES % (MANUAL) 10 % (19-48); METAMYELOCYTES % (MANUAL) 3 % (0-0); MONOCYTES % (MANUAL) 14 % (3.4-9.0); MYELOCYTES % (MANUAL) 1 % (0-0); NEUTROPHILS % (MANUAL) 72 % (40-74)
[2018-09-05 08:55] LABS: ANISOCYTOSIS SLIG; PLATELET ESTIMATE ADEQUATE; PLATELET MORPHOLOGY COMMENT NORMAL; RBC MORPHOLOGY COMMENT NORMAL
[2018-09-05] MEDS ORDERED: LIPITOR20 MG PO (11:37)
[2018-09-05] MEDS ORDERED: LISINOPRIL2.5 MG PO (11:38)
[2018-09-05] MEDS ORDERED: BRILINTA90 MG PO (11:38)
[2018-09-05] MEDS ORDERED: METOPROLOL TART25 MG PO (11:39)
[2018-09-05 12:02] VITALS: BP 98/87
--- NOTE | 2018-09-05 15:53 | Progress Note ---
DATE: 09/05/2018 Cardiology Progress Note SUBJECTIVE: No major events overnight. OBJECTIVE: VITAL SIGNS: Temperature 98.2, pulse 69, respiratory rate 18, blood pressure 103/63, and saturating 98% on room air. GENERAL: Middle-aged man, in no acute distress. CARDIOVASCULAR: Regular rate and rhythm. No murmurs, rubs, or gallops. LUNGS: Clear to auscultation bilaterally. ABDOMEN: Obese, soft, nontender, nondistended. NEURO AND PSYCH: Alert and oriented to person, place, and time. Normal affect. INPATIENT MEDICATIONS: Reviewed. LABORATORY DATA: Reviewed. TELEMETRY DATA: Reviewed. ASSESSMENT: Non-ST elevation myocardial infarction. PLAN: Doing well post PCI. Okay to be discharged from cardiovascular standpoint on current cardiovascular medications including aspirin, ticagrelor, high-intensity statin, beta-yuli and JENNIFER inhibitor as prescribed. The patient will follow up in office with me in 2 weeks post discharge. I had a long discussion with the patient about importance of taking his dual antiplatelet therapy and risk of stent thrombosis. The patient understands. Thank you for this consult. We will continue to follow. MD DREW Melgar/MARQUEZ /[id number]
--- NOTE | 2018-09-06 02:16 | Discharge Summary ---
FINAL DISCHARGE DIAGNOSES: 1. Rcf-[id number] myocardial infarction, status post left heart catheterization performed on 09/04/2018 with drug-eluting stent in the RCA x1 stent placement. 2. Type 2 diabetes. 3. Hyperlipidemia. 4. Hypertension. 5. Morbid obesity. CONSULTANTS: Cardiology. VITAL SIGNS: Temperature is 97.8, pulse 70, respiratory rate is 19, blood pressure 103/63, and pulse ox 98% on room air. LAB FINDINGS: Show white count 7.5, hemoglobin 14, hematocrit is 43, platelets of 185. Chemistry: Sodium 139, potassium 3.8, chloride 107, bicarb 21, anion gap of 12, BUN is 11, creatinine is 0.7, glucose is 130. Hemoglobin A1c 6.3, calcium 9.2. His troponins were elevated. LDL was found to be 95. MICROBIOLOGY: None. IMAGING STUDIES: Chest x-ray found showed borderline heart size with central pulmonary vascular prominence with left pleural effusion. HOSPITAL COURSE: This is a 68-year-old male with known history of hypertension, type 2 diabetes, morbid obesity, as well as hyperlipidemia, who was seen at the outside freestanding ER with complaints of chest pain. He is found to have an elevated troponin greater than 10. The patient was then transferred to the [facility] for further evaluation and management. Cardiology was consulted. The patient was in IMCU. The patient underwent a left heart catheterization on 09/04/2018 and status post a drug-eluting stent placed in the RCA according to the operative report. The patient was then started on his Brilinta, aspirin, and cardioprotective medications. The patient denies anymore chest pain after the procedure with no other issues. The patient is back to normal baseline with no other complaints. His A1c was 6.3. His LDL was elevated and started on a statin. The patient was then cleared for discharge by Cardiology for home. The patient is to follow up with Cardiology in 2 weeks' time. On the day of discharge, vital signs stable, labs being stable. The patient was seen, evaluated, examined thoroughly on the day of discharge. No other complaints. The patient verbalized understanding and agreed with plan of care to follow up as an outpatient with primary care physician in 1 week and dressing room attendant in 2 weeks' time. MEDICATIONS: See med reconciliation form including Brilinta, aspirin, lisinopril, metoprolol, and Lipitor, which were all written and placed in the chart. CONDITION: Stable. DIET: Heart healthy. In the event of any worsening symptoms, the patient was advised to come back to the ED for further evaluation. Discharge summary took greater than 35 minutes. MD LINDA Monique/MARQUEZ /[id number]
== END 2018-09-05 12:33 | disposition home or self-care (01) | DRG 247 ==
LOC: FSED 11:25 → ERHOLD 14:15 → IMCU 15:00
PROVIDERS: ADMIT Internal Medicine; ATTEND Internal Medicine
PROC: 027034Z Dilation of Coronary Artery, One Artery with Drug-eluting Intraluminal Device, Percutaneous Approach (ICD-10-PCS; principal; 2018-09-04)
PROC: 4A023N7 Measurement of Cardiac Sampling and Pressure, Left Heart, Percutaneous Approach (ICD-10-PCS; 2018-09-04)
PROC: B2111ZZ Fluoroscopy of Multiple Coronary Arteries using Low Osmolar Contrast (ICD-10-PCS; 2018-09-04)
DX: I21.4 Non-ST elevation (NSTEMI) myocardial infarction (principal); J90 Pleural effusion, not elsewhere classified; I10 Essential (primary) hypertension; E78.5 Hyperlipidemia, unspecified; Z68.32 Body mass index [BMI] 32.0-32.9, adult; E11.9 Type 2 diabetes mellitus without complications; M06.9 Rheumatoid arthritis, unspecified; Z79.84 Long term (current) use of oral hypoglycemic drugs; Z87.891 Personal history of nicotine dependence; E66.01 Morbid (severe) obesity due to excess calories
CPT/HCPCS: 36415; 71046; 80048; 80053; 80061; 81003; 82550; 82553; 82948; 83036; 83880; 84484; 85025; 85379; 92928; 93005; 93306; 93454; 99284; C1874; C1887; J1650; J2001; J2250; J7030; Q9967

== ENCOUNTER → 2019-11-21 | Outpatient (CLI) | payer MEDICARE, BC ==
[~2019-11-21] MED LIST changes: +ASPIR 8181 MG PO; +BRILINTA90 MG PO; +FINASTERIDE5 MG PO; +FLOMAX0.4 MG PO; +FOLIC ACID1 MG PO; +HUMIRA40 MG/0.1; +HUMIRA40 MG/0.1 INJ; +JANUMET XR 1001 EACH; +LIPITOR20 MG PO; +LISINOPRIL10 MG PO; +LISINOPRIL2.5 MG PO; +METFORMIN HCL500 MG PO; +METHOTREXATE2.5 MG PO; +METOPROLOL TART25 MG PO; +PREDNISONE10 MG PO
[2019-11-21 10:40] LABS: BASOPHILS # (AUTO) 0.1 (0.0-0.1); BASOPHILS % 0.7 % (0.0-1.0); EOSINOPHILS # (AUTO) 0.2 (0.0-0.4); HEMATOCRIT 42.2 % (38.2-49.6); HEMOGLOBIN 13.8 g/dL (14.0-18.0); LYMPHOCYTES # (AUTO) 1.9 (1.0-3.2); LYMPHOCYTES % 19.3 % (18.0-39.1); MEAN CORPUSCULAR HEMOGLOBIN 30.4 pg (28-32); MEAN CORPUSCULAR HGB CONC 32.7 g/dL (31-35); MONOCYTES # (AUTO) 0.9 (0.2-0.8); MONOCYTES % 8.5 % (4.4-11.3); NEUTROPHILS # (AUTO) 6.7 (2.1-6.9); NEUTROPHILS % 67.2 % (38.7-80.0); PLATELET COUNT 183 x10e3/uL (140-360); RED BLOOD COUNT 4.54 x10e6/uL (4.3-5.7)
[2019-11-21 10:58] LABS: ALANINE AMINOTRANSFERASE 35 IU/L (0-55); ALBUMIN 3.6 g/dL (3.5-5.0); ALBUMIN/GLOBULIN RATIO 1.2 (0.8-2.0); ALKALINE PHOSPHATASE 79 IU/L (40-150); BLOOD UREA NITROGEN 15 mg/dL (7-26); BUN/CREATININE RATIO 19 (6-25); CARBON DIOXIDE 27 mmol/L (22-29); CHLORIDE 100 mmol/L (98-107); CREATININE, SERUM 0.81 mg/dL (0.72-1.25); EST GLOMERULAR FILTRATION RATE > 60 ML/MIN (60-); GLUCOSE 229 mg/dL (74-118); SODIUM 135 mmol/L (136-145)
== END ==
LOC: LAB 05:00 → EDSTATUS 11-26 08:00
PROVIDERS: ATTEND Internal Medicine
DX: Z01.818 Encounter for other preprocedural examination (principal); I25.10 Atherosclerotic heart disease of native coronary artery without angina pectoris; Z53.8 Procedure and treatment not carried out for other reasons; Z11.59 Encounter for screening for other viral diseases
CPT/HCPCS: 36415; 80053; 85025; U0002

== ENCOUNTER → 2025-01-29 | Day surgery (SDC) | payer MEDICARE, BC ==
[2025-01-27 11:06] LABS: BASOPHILS % 1.0 % (0.0-1.0); EOSINOPHILS % 2.4 % (0.0-6.0); LYMPHOCYTES % 27.8 % (18.0-39.1); MONOCYTES % 9.2 % (4.4-11.3); NEUTROPHILS % 57.6 % (38.7-80.0); RED CELL DISTRIBUTION WIDTH 15.6 % (11.7-14.4)
[2025-01-27 11:34] LABS: EST GLOMERULAR FILTRATION RATE 96.0 ML/MIN (>=60)
[~2025-01-29] MED LIST changes: +ASPIRIN 325 MG TAB PO SCH; +ASPIRIN81 MG PO; +AZITHROMYCIN250 MG PO; +BASAGLAR K100 UNIT/1 SQ; +CALCIUM; +CELECOXIB 100 MG CAP PO SCH; +CLINDAMYCIN HC150 MG PO; +CLOPIDOGREL75 MG PO; +CODEINE; +DEXAMETHASONE SOD PHOS INJ 4 MG/ML SDV ONE; +DOCUSATE SODIUM 100 MG CAP PO PRN; +EPHEDRINE SULFATE INJ 50 MG/ML VIAL ONE; +FAMOTIDINE 20 MG/2 ML VIAL IV ONE; +FENTANYL CITRATE/PF 100MCG/2 ML INJ ONE; +FISH OIL 1,0001 EAC7; +FLUCONAZOLE100 MG PO; +FOLIC ACID; +GABAPENTIN300 MG PO; +HUMIRA40 MG/0.1 BLADIN; +HYDROCODON-ACE1 EA11 PO; +HYDROCODON-ACE1 EA12 PO; +HYDROCODONE/APAP 7.5MG-325MG 1 EA TAB PO PRN; +INSULIN SQ; +JANUMET XR 50-1 EAC1; +LEVOFLOXACIN500 MG PO; +LIDOCAINE HCL 2% LOCAL INJ 5 ML SDV VIAL INJ ONE; +MAGNESIUM500 MG PO; +MEDROL4 M2 PO; +METHADONE HCL10 MG PO; +METOPROLOL; +METOPROLOL SUCC50 MG PO; +MIDAZOLAM HCL 2 MG/2 ML VIAL ONE; +MULTI-VITAMIN1 EACH PO; +NOVOLOG MI100 UNIT/1 SC; +ONDANSETRON HCL INJ 2MG/ML 2ML 2 MG/ML VIAL IV PRN; +ONDANSETRON HCL INJ 2MG/ML 2ML 2 MG/ML VIAL ONE; +PLAVIX75 MG PO; +PREDNISONE; +PREDNISONE20 MG PO; +PROPOFOL IV EMULSION 10 MG/ML 20 ML VIAL ONE; +ROPIVACAINE/EPI/CLONIDINE/KET 50 ML SYRINGE INJ ONE; +SIMVASTATIN20 MG PO; +STEGLATRO15 MG PO; +SYNTHROID125 MCG PO; +TERBINAFINE HC250 MG PO; +ULTRAM 50MG50 MG PO; +[UNRECOGNIZED DRUG - OTHER]
[2025-01-29] MEDS: CEFAZOLIN SODIUM 2 GM ONE (08:33)
[2025-01-29] MEDS: LACTATED RINGER'S 1,000 ML ONE (08:33)
[2025-01-29] MEDS: ACETAMINOPHEN 1000 MG/100 ML 100 ML IV ONE (11:50)
[2025-01-29] MEDS: FENTANYL CITRATE/PF 100MCG/2 ML INJ ONE (12:10)
[2025-01-29 13:40] VITALS: BP 142/84; PULSE 88; RESP 17; O2SAT 97
== END | disposition home or self-care (01) ==
LOC: OR 07:26
PROVIDERS: ATTEND Orthopaedic Surgery Adult Reconstructive Orthopaedic Surgery
DX: M17.12 Unilateral primary osteoarthritis, left knee (principal); E11.9 Type 2 diabetes mellitus without complications; I25.10 Atherosclerotic heart disease of native coronary artery without angina pectoris; I25.2 Old myocardial infarction; I10 Essential (primary) hypertension; E78.5 Hyperlipidemia, unspecified; Z01.810 Encounter for preprocedural cardiovascular examination; Z01.812 Encounter for preprocedural laboratory examination; Z01.818 Encounter for other preprocedural examination; Z79.82 Long term (current) use of aspirin; Z79.4 Long term (current) use of insulin; Z79.899 Other long term (current) drug therapy; Z95.5 Presence of coronary angioplasty implant and graft
CPT/HCPCS: 27447; 36415 ×2; 71046; 73560; 80048; 82948; 85025; 86850; 86900; 93005; 97116; 97161; C1713; C1776 ×4; J0131; J1100; J1308; J2003; J2405; J2704; J3010; J7121; J2250